=== PATIENT | female | born 1985 | race Caucasian/White ===

== ENCOUNTER 2018-04-30 07:01 | Inpatient (IN) | payer BC, MEDICAID ==
[2018-04-30] VITALS (38 sets, daily range): BP systolic 94–137; BP diastolic 56–87; PULSE 57–102; TEMP 97.5–98.6
[~2018-04-30] VITALS: Ht 160 cm; Wt 73.6 kg
[~2018-04-30 07:01] MED LIST: MOTRIN 600600 MG/TAB PO; PRENATAL1 TA1 PO; SENOKOT S 50 MG1 TAB PO; TUMS500 MG PO
[2018-04-30 07:54] LABS: BASO # 0.1 (0.0-0.2); BASO % 0.7 % (0.0-2.0); EOS # 0.2 (0.0-0.7); EOS % 1.8 % (0-4.0); GRAN # 5.7 (1.4-6.5); HEMATOCRIT 36.1 % (37.0-47.0); HEMOGLOBIN 12.1 g/dl (12.5-16.0); LYMPH # 2.4 (1.2-3.4); LYMPH % 26.2 % (20.0-51.0); MEAN CELL VOLUME 88 fl (80.0-100.0); MEAN CORPUSCULAR HEMOGLOBIN 29 pg (27.0-31.0); MEAN CORPUSCULAR HGB CONC 34 g/dl (33.0-37.0); MEAN PLATELET VOLUME 10.8 fl (7.4-10.4); MONO # 0.7 (0.1-0.6); PLATELET COUNT 234 K/mm3 (130-400); RED BLOOD COUNT 4.12 M/mm3 (4.10-5.30); REDCELL DISTRIBUTION WIDTH-CV 13.5 % (11.5-14.5)
[2018-04-30] MEDS ORDERED: MOTRIN 600600 MG/TAB PO (15:01)
[2018-05-01 03:29] VITALS: BP 104/56; PULSE 70; TEMP 98.3
[2018-05-01 09:30] VITALS: BP 110/75; PULSE 76; TEMP 97.5
[2018-05-01 12:30] VITALS: BP 110/70; PULSE 75; TEMP 97.8
[2018-05-01 16:00] VITALS: BP 118/73; PULSE 67; TEMP 97.8
[2018-05-01 19:30] VITALS: BP 110/63; PULSE 67; TEMP 98.4
[2018-05-01 20:20] VITALS: BP 121/77; PULSE 73; TEMP 98.4
[2018-05-02 09:03] VITALS: BP 113/71; PULSE 60; TEMP 98.2
== END 2018-05-02 12:50 | disposition home or self-care (01) | DRG 775 ==
LOC: OB 07:01 → LDR 07:01 → OB 17:30
PROVIDERS: Obstetrics & Gynecology
PROC: 10E0XZZ Delivery of Products of Conception, External Approach (ICD-10-PCS; principal; 2018-04-30)
PROC: 10907ZC Drainage of Amniotic Fluid, Therapeutic from Products of Conception, Via Natural or Artificial Opening (ICD-10-PCS; 2018-04-30)
PROC: 3E033VJ Introduction of Other Hormone into Peripheral Vein, Percutaneous Approach (ICD-10-PCS; 2018-04-30)
DX: O80 Encounter for full-term uncomplicated delivery (principal); Z22.330 Carrier of Group B streptococcus; Z3A.39 39 weeks gestation of pregnancy; Z37.0 Single live birth
CPT/HCPCS: J2540; J2590; J7120